=== PATIENT | female | born 1995 | race Two or more races ===

== ENCOUNTER 2021-10-19 08:39 | Emergency (ER) | payer OTHER ==
[~2021-10-19] VITALS: Ht 157.5 cm; Wt 72.1 kg
[2021-10-19] MEDS ORDERED: LEVOTHYROXINE50 MC1 PO (08:51)
[2021-10-19] MEDS ORDERED: PRENATE CHEWABLE1 MG PO (08:52)
== END 2021-10-19 13:05 | disposition home or self-care (01) ==
LOC: ER 08:39
DX: O20.9 Hemorrhage in early pregnancy, unspecified (principal); Z3A.01 Less than 8 weeks gestation of pregnancy

== ENCOUNTER 2021-11-03 15:29 | Emergency (ER) | payer OTHER ==
[~2021-11-03] VITALS: Ht 157.5 cm; Wt 68.5 kg
[~2021-11-03 15:29] MED LIST: LEVOTHYROXINE50 MC1 PO; PRENATE CHEWABLE1 MG PO
== END 2021-11-03 18:18 | disposition home or self-care (01) ==
LOC: ER 15:29
DX: O98.511 Other viral diseases complicating pregnancy, first trimester (principal); Z3A.10 10 weeks gestation of pregnancy; Z20.822 Contact with and (suspected) exposure to COVID-19

== ENCOUNTER 2025-03-26 12:00 | Day surgery (SDC) | payer OTHER ==
[2025-03-26 08:37] LABS: BASO % 0.4 % (0.1-1.2); EOS # 0.07 (0.04-0.54); EOS % 1.5 % (0.7-7.0); LYMPH # 1.00 (1.18-3.74); LYMPH % 22.0 % (19.3-53.1); MEAN PLATELET VOLUME 11.40 fl (9.4-12.4); MONO # 0.41 (0.24-0.82); MONO % 9.0 % (4.7-12.5); NEUT # 3.03 (1.56-6.13); NEUT % 66.9 % (34.0-71.1); RED CELL DISTRIBUTION WIDTH 12.0 % (11.6-14.4)
[2025-03-26 08:42] LABS: URINE APPEARANCE Clear; URINE BILIRRUBIN Negative (NEGATIVE); URINE BLOOD Negative; URINE COLOR Yellow; URINE GLUCOSE Negative (NEGATIVE); URINE KETONE Negative (NEGATIVE); URINE LEUKOCYTE Negative; URINE NITRATE Negative; URINE PROTEIN Negative (NEGATIVE); URINE UROBILINOGEN 1.0 E.U./dl
[2025-03-26 08:47] LABS: URINE EPITHELIAL CELLS 9.6 uL (0.0-38.8); URINE RBC 3.8 uL (0.0-20.8); URINE WBC 2.3 uL (0.0-23.2)
[2025-03-26 08:53] LABS: URINE CAST 0.14 uL (0.0-1.40)
[2025-03-26 08:59] LABS: INR 1.0
[~2025-03-26 12:00] MED LIST changes: +FOLIC ACID20 MG PO; +IRON325 MG PO; +PRENATAL TABLE1 EAC1 PO
[2025-03-26] MEDS ORDERED: RINGERS SOLUTION,LACTATED 1,000 ML IV SCH (13:45)
[2025-03-26 18:56] LABS: RH POSITIVE
== END 2025-03-26 19:30 | disposition home or self-care (01) ==
LOC: CIR.AMB 12:00
PROVIDERS: ATTEND Obstetrics & Gynecology
DX: O02.1 Missed abortion (principal)